=== PATIENT | female | born 1950 | race Caucasian/White ===

== ENCOUNTER 2020-02-03 12:55 | Outpatient (CLI) | payer MEDICARE, MEDICAID, SELFPAY ==
--- NOTE | 2020-02-03 13:04 | USCV_ITS ---
Joelle Escalante Age: 69 Gender: F : 1950 Exam Date: 02/03/2020 13:08 Ordering Phys: Trent Musa MD ([email or web address]) Technologist: Catherine Quijano Exam Location: [facility] [place] Indication: STENOSIS Risk Factors: Previous Vascular Surgery: Right Brachial BP: / Left Brachial BP: / Right Left Velocity (cm/s) Spectral Plaque Velocity (cm/s) Spectral Plaque Syst/Diast Broadening Syst/Diast Broadening 77.90/ 15.40 Prox CCA 87.80 / 25.10 77.90/ 15.40 Mid CCA 114.50/ 31.40 82.70/ 14.40 Distal CCA 120.70/ 25.10 115.30/19.20 Prox ICA 141.10/ 17.20 98.00/ 21.10 Mid ICA 112.90/ 29.80 87.50/ 21.10 Distal ICA 97.20 / 29.80 81.70 ECA 88.40 1.48 ICA/CCA 1.23 Antegrade Vertebral Antegrade 98.00/ 22.10 cm/s 36.50/ 11.50 cm/s Tri Subclavian Tri 152.1 100.9 0 0 FINDINGS Moderate to heavy heterogeneous plaques at the left bifurcation and proximal internal carotid artery Moderate heterogeneous plaques at the right bifurcation and proximal internal carotid artery Intimal thickening and minimal plaques in the common carotid arteries bilaterally Antegrade flow in the vertebral arteries bilaterally CONCLUSIONS Moderate to heavy heterogeneous plaques at the left bifurcation and proximal internal carotid artery with velocity elevation consistent with 50-79% stenosis. Moderate heterogeneous plaques at the right bifurcation and proximal internal carotid artery with velocity elevation consistent with 16-49% stenosis. Compared to the study from 02/01/2019, there is some progression of disease on the left side Dr Katie Graham MD [facility] (Electronically Signed) Final Date: 03 February 2020 18:45 S
== END 2020-02-03 12:56 | disposition home or self-care (01) ==
LOC: RAD 13:00
PROVIDERS: Family Provider Family Medicine; PCP Family Medicine; Visit Provider Internal Medicine Cardiovascular Disease
DX: I65.23 Occlusion and stenosis of bilateral carotid arteries (principal)
CPT/HCPCS: 93880

== ENCOUNTER → 2020-04-08 09:12 | Outpatient (BNVA) | payer MEDICARE, MEDICAID, SELFPAY | PROVIDERS: Family Provider Family Medicine; PCP Family Medicine; Visit Provider Nurse Practitioner Family | DX: I10 Essential (primary) hypertension (principal) | CPT/HCPCS: 80053; 80061; 84439; 84443 ==

== ENCOUNTER → 2020-05-04 10:25 | Outpatient (BNVA) | payer MEDICARE, MEDICAID, SELFPAY | PROVIDERS: Family Provider Family Medicine; PCP Family Medicine; Visit Provider Family Medicine | DX: F32.9 Major depressive disorder, single episode, unspecified (principal); F41.9 Anxiety disorder, unspecified; I25.10 Atherosclerotic heart disease of native coronary artery without angina pectoris; R21 Rash and other nonspecific skin eruption | CPT/HCPCS: 36415; 80053; 85025 ==

== ENCOUNTER 2021-02-10 09:09 | Outpatient (CLI) | payer MEDICARE, MEDICAID, SELFPAY ==
--- NOTE | 2021-02-10 09:30 | USCV_ITS ---
Joelle Escalante Age: 70 Gender: F : 1950 Exam Date: 02/10/2021 09:38 Ordering Phys: Jennifer Moser MD ([email or web address]) Technologist: Kelli Robles Exam Location: [facility] Indication: CAD Risk Factors: Previous Vascular Surgery: Right Brachial BP: / Left Brachial BP: / Right Left Velocity (cm/s) Spectral Plaque Velocity (cm/s) Spectral Plaque Syst/Diast Broadening Syst/Diast Broadening 82.40/ 12.50 Prox CCA 88.20 / 12.20 99.40/ 11.60 Mid CCA 107.90/ 16.90 115.80/13.20 Distal CCA 119.30/ 15.27 125.55/16.45 Prox ICA 137.70/ 18.40 91.70/ 15.70 Mid ICA 127.50/ 19.20 66.00/ 13.40 Distal ICA 98.70 / 19.20 95.90 ECA 104.00 1.28 ICA/CCA 1.28 Antegrade Vertebral Antegrade 97.30/ 13.40 cm/s 55.50/ 8.40 cm/s Tri Subclavian Tri 153.3 154.9 0 0 FINDINGS Comparison:. 02/03/20. Diffuse bilateral scattered calcified plaque and intimal thickening throughout the common carotid arteries and extending through the bifurcation. Despite the plaque only mild stenosis without progression since the prior exam. Antegrade vertebral arteries. CONCLUSIONS Bilateral ICA stenosis less than 50%. No interval change in stenosis since prior exam. Moderate bilateral diffuse atherosclerosis. Dr. Jessica Ren DO (Electronically Signed) Final Date: 10 February 2021 10:49 S
--- NOTE | 2021-02-10 10:15 | USCV_ITS ---
Joelle Escalante Age: 70 Gender: F : 1950 Exam Date: 02/10/2021 10:04 Ordering Phys: Jennifer Moser MD ([email or web address]) Technologist: Kelli Robles Exam Location: [facility] – [place] Indication: CAD BP: 206 / 93 HR: 65 Rhythm: Sinus Technical Quality: Adequate MEASUREMENTS (Male / Female) Normal Values 2D ECHO LV Diastolic Diameter PLAX 4.0 cm 4.2 - 5.9 / 3.9 - 5.3 cm LV Systolic Diameter PLAX 2.5 cm IVS Diastolic Thickness 1.6 cm 0.6 - 1.0 / 0.6 - 0.9 cm IVS Systolic Thickness 1.9 cm LVPW Diastolic Thickness 1.2 cm 0.6 - 1.0 / 0.6 - 0.9 cm LVPW Systolic Thickness 1.7 cm RV Chamber Size 2.6 cm LVOT Diameter 2.0 cm LV Ejection Fraction 2D Teich 69.0 % LV Ejection Fraction MOD 2C 60.1 % LV Ejection Fraction 2C AL 62.2 % LA Diameter 2.5 cm LA Width 3.0 cm LA Height 4.1 cm RA Width 2.7 cm RA Height 3.4 cm Aorta at Sinotubular Diameter 2.3 cm M-MODE Aortic Annulus Diameter 2.9 cm LA Ao Ratio MM 0.8 MV E Point Septal Separation 0.5 cm DOPPLER AV Peak Velocity 127.0 cm/s LVOT Peak Velocity 92.0 cm/s AV Area Cont Eq vti 2.4 cm squared AV Area Cont Eq pk 2.3 cm squared MV Area PHT 3.4 cm squared Mitral E to A Ratio 0.7 MV E' Velocity 35.5 cm/s Mitral E to MV E' Ratio 8.4 Mitral E to LV E' Lateral Ratio 7.5 Mitral E to LV E' Septal Ratio 9.5 TR Peak Velocity 286.0 cm/s TR Peak Gradient 32.7 mmHg TV Peak E Velocity 55.0 cm/s Right Atrial Pressure 3.0 mmHg Pulmonary Artery Systolic Pressu 35.7 mmHg PV Peak Velocity 101.0 cm/s RV Acceleration Time 0.1 s RV Ejection Time 0.3 s RV AcT/ET 0.4 FINDINGS Left Ventricle Normal left ventricular cavity size. Increased left ventricular wall thickness. Mild concentric left ventricular hypertrophy. Normal left ventricular systolic function. Left ventricular ejection fraction is estimated at 68 %. No regional wall motion abnormalities. Normal diastolic function. Right Ventricle Normal right ventricular size and systolic function. Right ventricular systolic pressure 35.7 mmHg. Right Atrium Normal right atrial size. Right atrial pressure estimated at 3 mm Hg. Left Atrium Mildly increased left atrial size. Mitral Valve Mild mitral annular calcification. Thickened mitral valve. No mitral valve stenosis. Mild mitral valve regurgitation. Aortic Valve Mildly thickened trileaflet aortic valve. No aortic valve stenosis. Moderate aortic valve regurgitation. Tricuspid Valve Structurally normal tricuspid valve. Trace to mild tricuspid valve regurgitation. Pulmonic Valve Pulmonic valve not well visualized. Trace pulmonary valve regurgitation. Pericardium No pericardial effusion. Aorta Normal size aortic root. Normal sized inferior vena cava. CONCLUSIONS 1. This is a technically difficult study. Optison was used per protocol. 2. Normal left ventricular cavity size and systolic function. Mild concentric left ventricular hypertrophy. Left ventricular ejection fraction is estimated at 68 %. No regional wall motion abnormalities. Normal diastolic function. 3. Moderate aortic valve regurgitation. 4. Pulmonary artery pressure estimated at 36 mm Hg. 5. Mild mitral valve regurgitation. 6. When compared to previous echocardiogram dated 12/18/2017, there may not have been any significant change. Jennifer Moser MD (Electronically Signed) Final Date: 14 February 2021 12:43 S
[2021-02-10] MEDS: perflutren protein-a microsphr 0.22 mg/mL SDV 3 mL IV (10:19)
== END 2021-02-10 09:10 | disposition home or self-care (01) ==
LOC: RAD 09:13
PROVIDERS: Visit Provider Internal Medicine Cardiovascular Disease
DX: I25.10 Atherosclerotic heart disease of native coronary artery without angina pectoris (principal); I65.23 Occlusion and stenosis of bilateral carotid arteries; I08.0 Rheumatic disorders of both mitral and aortic valves
CPT/HCPCS: 93880; C8929; Q9956

== ENCOUNTER → 2022-03-30 12:21 | Outpatient (BNVA) | payer MEDICARE, SELFPAY | PROVIDERS: PCP Family Medicine; Visit Provider Internal Medicine Cardiovascular Disease | DX: I65.23 Occlusion and stenosis of bilateral carotid arteries (principal); F17.210 Nicotine dependence, cigarettes, uncomplicated; I10 Essential (primary) hypertension; I25.10 Atherosclerotic heart disease of native coronary artery without angina pectoris; I25.2 Old myocardial infarction; Z86.73 Personal history of transient ischemic attack (TIA), and cerebral infarction without residual deficits; I35.1 Nonrheumatic aortic (valve) insufficiency; E78.2 Mixed hyperlipidemia; Z95.5 Presence of coronary angioplasty implant and graft | CPT/HCPCS: 99213; 99214 ==

== ENCOUNTER 2022-08-11 07:48 | Outpatient (CLI) | payer MEDICARE, MEDICAID, SELFPAY ==
--- NOTE | 2022-08-11 09:30 | USCV_ITS ---
Joelle Escalante Age: 72 Gender: F : 1950 Exam Date: 08/11/2022 08:27 Ordering Phys: Trent Musa MD ([email or web address]) Technologist: SHANON Exam Location: [facility] [place] Indication: EVAL FOR CAROTID STENOSIS Risk Factors: Previous Vascular Surgery: Right Brachial BP: / Left Brachial BP: / Right Left Velocity (cm/s) Spectral Plaque Velocity (cm/s) Spectral Plaque Syst/Diast Broadening Syst/Diast Broadening 136.70/16.50 Prox CCA 104.90/ 16.10 151.20/21.00 Mid CCA 124.20/ 18.20 148.60/17.10 Distal CCA 134.10/ 14.50 121.30/17.90 Prox ICA 152.50/ 18.40 112.30/15.50 Mid ICA 123.00/ 23.50 73.90/ 15.00 Distal ICA 109.60/ 17.10 87.20 ECA 115.40 1.03 ICA/CCA 1.14 Antegrade Vertebral Antegrade 73.00/ 10.60 cm/s 65.30/ 13.80 cm/s Bi Subclavian Bi 173.4 200.4 0 0 FINDINGS Comparison:. 02/10/21. No significant elevation of systolic or diastolic velocities. Diffuse bilateral scattered calcified plaque and intimal thickening throughout the common carotid arteries and extending through the bifurcation. Mild progression of atherosclerotic plaque. Antegrade vertebral arteries. CONCLUSIONS Bilateral ICA stenosis less than 50%. Mild diffuse progression of carotid atherosclerosis. Dr. Jessica Ren DO (Electronically Signed) Final Date: 11 August 2022 11:07 S
== END 2022-08-11 07:49 | disposition home or self-care (01) ==
PROVIDERS: PCP Family Medicine; Visit Provider Internal Medicine Cardiovascular Disease
DX: I65.23 Occlusion and stenosis of bilateral carotid arteries (principal)
CPT/HCPCS: 93880

== ENCOUNTER → 2022-09-22 10:41 | Outpatient (BNVA) | payer MEDICARE, SELFPAY | PROVIDERS: PCP Nurse Practitioner; Visit Provider Internal Medicine Cardiovascular Disease | DX: R06.02 Shortness of breath (principal); I10 Essential (primary) hypertension; I25.10 Atherosclerotic heart disease of native coronary artery without angina pectoris; I35.1 Nonrheumatic aortic (valve) insufficiency; I65.23 Occlusion and stenosis of bilateral carotid arteries; E78.2 Mixed hyperlipidemia; I25.2 Old myocardial infarction; Z95.5 Presence of coronary angioplasty implant and graft; R07.9 Chest pain, unspecified | CPT/HCPCS: 93005; 99214; Q3014 ==